=== PATIENT | male | born 1995 | race Caucasian/White ===

== ENCOUNTER 2018-10-12 02:47 | Emergency (ER) | payer SELFPAY ==
[~2018-10-12] VITALS: Ht 175.3 cm; Wt 79.4 kg
--- OUTSIDE RECORDS SUMMARY | 2018-10-12 02:52 | XMS REPORT | Continuity of Care Document ---
Author Organization Unknown Address Unknown Allergies Active Description Code Type Severity Reaction Onset Reported/Identified Relationship to Patient Clinical Status Yes No Known Medication Allergies Drug N/A N/A Medications There is no data. Problems Date Dx Coded Attending Type Code Diagnosis Diagnosed By 08/10/2014 ESTEE MEDLEY APRN 380.4 IMPACTED CERUMEN 12/13/2017 Final R06.02 Shortness of breath 12/13/2017 Final R07.2 Precordial pain 12/13/2017 Final R11.0 Nausea 12/13/2017 Final Z72.0 Tobacco use Procedures Code [place] [address] REMOVE IMPACTED EAR WAX UNI 08/10/2014 [id number] Emergency department visit for the evalu KRISTINE PARRA 12/12/2017 Results Test Result Range CARDIAC MARKER, 0 HR WITH REFLEX - 12/13/17 00:07 Cardiac Troponin T <0.01 ng/mL 0.00-0.02 Myoglobin 29 ng/mL 0-70 Encounters ACCT No. Visit Date/Time Discharge Status Pt. Type Provider Facility Loc./Unit Complaint [id number] 08/10/2014 15:29:00 08/10/2014 23:59:59 [facility] Outpatient ESTEE MEDLEY APRN [id number] 12/12/2017 23:27:00 Document Registration [id number] 07/22/2018 10:00:00 07/22/2018 23:59:59 [facility] Outpatient ZOILA KIRBY [facility]
--- OUTSIDE RECORDS SUMMARY | 2018-10-12 02:52 | XMS REPORT ---
Author Author ZOILA KIRBY [facility] Address [address] [place] [address] Care Team Providers Care Aerographer Name Role Phone ZOILA KIRBY Unavailable PROBLEMS Type Condition ICD9-CM Code WIA22-UC Code Onset Dates Condition Status SNOMED Code Problem Tobacco use Z72.0 Feb, 0 490297294 Problem Gastroesophageal reflux disease 530.81 Apr, 0 445363317 Problem GERD with esophagitis K21.0 Active 638518431 Problem Gastroesophageal reflux disease, esophagitis presence not specified K21.9 Active 838541641 Problem Tobacco use 305.1 Feb, 0 697694280 Problem Cigarette nicotine dependence, uncomplicated 305.1 Feb, 0 729290867 Problem Gastroesophageal reflux disease K21.9 Apr, 0 424966353 Problem Cigarette nicotine dependence, uncomplicated F17.210 Feb, 0 341261645 ALLERGIES Substance Reaction Event Type Date Status Carafate dizziness Drug Allergy Jul, Active ENCOUNTERS Encounter Location Date Diagnosis [address] [address] Jul, GERD with esophagitis K21.0 and Epistaxis, recurrent R04.[address] [address] Jul, [facility] [id number] [address] May, [facility] [id number] [address] Apr, [facility] [id number] [address] Apr, [facility] [id number] [address] Apr, [facility] [address] [facility] [id number] [place] [address] 16 Apr, 2018 IMMUNIZATIONS No Known Immunizations SOCIAL HISTORY Never Assessed REASON FOR VISIT medical history update PLAN OF CARE VITAL SIGNS MEDICATIONS Medication Instructions Dosage Frequency Start Date End Date Duration Status Omeprazole 20 MG Take 1 Capsule (20 mg) by mouth 2 times daily. Unknown RESULTS No Results PROCEDURES No Known procedures INSTRUCTIONS MEDICATIONS ADMINISTERED No Known Medications MEDICAL (GENERAL) HISTORY Type Description Date Medical History tobacco use Medical History cigarette dependence Medical History gastroesophageal reflux disease Medical History bipolar Medical History depression Surgical History EGD
--- NOTE | 2018-10-12 03:33 | ED Psychosocial ---
General Chief Complaint: Psych/Social Disorder Stated Complaint: VOLUNTARY MENTAL HEALTH Source: patient, police Exam Limitations: no limitations History of Present Illness Date Seen by Provider: October 12, 2018 Time Seen by Provider: 03:18 Initial Comments Patient presents to ER by police escort but not in their custody. His chief complaint of increased difficulty at home with his suspecting that he's cheating on her and making accusations. He has been cutting on his forearms walking around town listening to music and other coping mechanisms which have worked in the past but he does not feel they are helping now. He denies suicidal or homicidal ideation. He did have an episode of serious cutting without suicide attempt in 2010 and spent some time inpatient psychiatric hospitalization. After that he followed with psychiatry and took medicines Seroquel and a few others with only poor results. He no longer takes any routine medications. He does not want to do inpatient psychiatry nor does he want any psychiatric medicines. He is interested however in counseling and would be interested in an outpatient referral. He has cut on himself today on his forearms superficially. He does have a history of GERD and takes acid reducers twice a day. He is not having any problems with it presently. Allergies and Home Medications Allergies Coded Allergies: sucralfate (Verified Allergy, Unknown, 10/12/18) Patient Home Medication List Home Medication List Reviewed: Yes Review of Systems Constitutional: No chills, No diaphoresis EENTM: No ear discharge, No ear pain Respiratory: No cough, No short of breath Cardiovascular: No chest pain, No edema Gastrointestinal: No abdominal pain, No constipation, No diarrhea, No nausea Genitourinary: No discharge, No dysuria Musculoskeletal: No back pain, No joint pain Past Twnzfyk-Ldvkwb-Njzdnx Hx Patient Social History Alcohol Use: Denies Use Recreational Drug Use: No Smoking Status: Never a Smoker 2nd Hand Smoke Exposure: No Recent Foreign Travel: No Contact w/Someone Who Travel: No Recent Hopitalizations: No Physical Abuse: No Sexual Abuse: No Mistreated: No Fear: No Seasonal Allergies Seasonal Allergies: No Past Medical History Surgeries: No Respiratory: No Cardiac: No Neurological: No Genitourinary: No Gastrointestinal: Yes Gastroesophageal Reflux Musculoskeletal: No Endocrine: No HEENT: No Cancer: No Psychosocial: Yes Depression Integumentary: No Blood Disorders: No Physical Exam Vital Signs - First Documented 10/12/18 03:24 Temp 98.4 Pulse 58 Resp 15 B/P (MAP) 164/83 (110) Pulse Ox 100 O2 Delivery Room Air Capillary Refill : Height, Weight, BMI Height: '" Weight: lbs. oz. kg; BMI Method: General Appearance: WD/WN, no apparent distress HEENT: PERRL/EOMI, pharynx normal Respiratory: no respiratory distress, no accessory muscle use Cardiovascular: normal peripheral pulses, no edema Extremities: normal inspection, no pedal edema Neurologic/Psychiatric: alert, oriented x 3, other (flat affect, avoids eye contact, normal carissa of speech. Denies hallucinations or delusions. Denies suicidal or homicidal ideation. Endorses low-energy, low mood, depression and cutting her bilateral forearms to relieve stress.) Appearance/Memory: appropriate appearance, appropriate insight Behavior/Eye Contact: cooperative, normal speech, avoids eye contact Thoughts/Hallucinations: no apparent hallucination; No delusions, No grandiose, No paranoid Skin: other (4 cm area of linear crosswise superficial erythematous abrasions consistent with cutting on left forearm palmar side) Progress/Results/Core Measures Results/Orders Vital Signs/I&O 10/12/18 03:24 Temp 98.4 Pulse 58 Resp 15 B/P (MAP) 164/83 (110) Pulse Ox 100 O2 Delivery Room Air Progress Progress Note #1: Time: 03:32 Progress Note The patient is adamant that he is not suicidal or having any homicidal ideation and does not wish to go inpatient. He does not desire to see a psychiatrist or start medicines. He has quite a bit of distressed surrounding medicine that he's tried in the past. He would however like to get set up with counseling outpatient this week if possible. He has concerns about how he is going to pay for it so we offered to put him in contact with the screener and see what resources are available in his area. He is happy to talk to the screener and get set up for counseling on an outpatient basis. He has made no statements that he is suicidal with anyone since he's been here. Since he is adamant against going inpatient and is not suicidal we will dispense with labs and EKG. Progress Note #2: Time: 04:02 Progress Note After speaking to mental health screener's and will be at least 2 hours possibly longer before they get to him. They said he can walk in for an appointment in 4 hours at the clinic. We presented these options to the patient and he says he prefer to go home get some sleep and just go to the clinic at 8:00 in the mor ana. Departure Impression Primary Impression: Depression Qualified Codes: F32.9 - Major depressive disorder, single episode, unspecified Additional Impression: Self-cutting of wrist Disposition: HOME, SELF-CARE Condition: Stable Departure-Patient Inst. Decision time for Depature: 04:03 Referrals: NO,LOCAL PHYSICIAN (PCP) Primary Care Physician Patient Instructions: Depression, Adult (DC), SUICIDE CONTRACT Add. Discharge Instructions: Go home and get some sleep. Plan to present 8:00 in the morning at the clinic and request screening for mental health counseling and other services as available. If you begin to have suicidal or homicidal thoughts please contact the police or return to the nearest ER for support prior to making a decision that you cannot take back. All discharge instructions reviewed with patient and/or family. Voiced understanding. Work/School Note: Work Release Form Date Seen in the Emergency Department: October 12, 2018 Return to Work: October 13, 2018 Restrictions: No Restrictions DARWIN ROGERS October 12, 2018 03:33
--- NOTE | 2018-10-12 03:50 | NUR ---
tracking number [id number]
--- NOTE | 2018-10-12 03:50 | NUR ---
[facility] notified of pt wanting screening, states may be up to 2 hrs before screening or go to [facility] clinic in am. pt informed and agreed to go to clinic in am, pt safety contract signed and pt remains suicidal/homicidal thought free upon discharge.
[2018-10-12 04:18] VITALS: BP 164/83
== END 2018-10-12 03:55 | disposition home or self-care (01) ==
LOC: ER FS 02:49
DX: S60.812A Abrasion of left wrist, initial encounter (principal); F32.9 Major depressive disorder, single episode, unspecified; K21.9 Gastro-esophageal reflux disease without esophagitis; Z88.8 Allergy status to other drugs, medicaments and biological substances; X78.9XXA Intentional self-harm by unspecified sharp object, initial encounter
CPT/HCPCS: 99283

== ENCOUNTER 2020-08-11 16:51 | Emergency (ER) | payer OTHER ==
[2020-08-11] MEDS ORDERED: FAMOTIDINE 20MG/2ML IV (PEPCID) IVP ONE (17:00)
[2020-08-11] MEDS ORDERED: ONDANSETRON 4 MG/2 ML (SDV) Z0FRAN IVP ONE (17:00)
[2020-08-11] MEDS ORDERED: NS IV 1000 ML 1,000 ML IV SCH (17:00)
--- NOTE | 2020-08-11 17:00 | ED Chest Pain ---
General Chief Complaint: Chest Pain Stated Complaint: CHEST PAIN | WEAKNESS IN LEGS Source: patient Exam Limitations: no limitations History of Present Illness Date Seen by Provider: Aug 11, 2020 Time Seen by Provider: 17:00 Initial Comments 24-year-old male with Long-term history of gastritis and GERD presents with onset of chest pain 3 hours prior to arrival. Patient states that he just woke up (which was a normal time for him as he states he has insomnia). No associated shortness of air, fever chills or cough. No recent illness. Patient is a long-term smoker, denies drug or alcohol use. Has had similar symptoms in the past, denies a history of any heart disease. Allergies and Home Medications Allergies Coded Allergies: sucralfate (Verified Allergy, Unknown, 10/12/18) Patient Home Medication List Home Medication List Reviewed: Yes Review of Systems Review of Systems Constitutional: No chills, No fever, No malaise, No weakness EENTM: No Symptoms Reported Respiratory: Denies Cough, Denies Shortness of Air Cardiovascular: Chest Pain; Denies Edema, Denies Lightheadedness, Denies Palpitations Gastrointestinal: Denies Abdominal Pain, Denies Constipated, Denies Diarrhea; Nausea; Denies Vomiting Musculoskeletal: back pain (w episodes of chest pain) Skin: No change in color, No rash Past Iwjuvbv-Plcaid-Cpirxd Hx Past Med/Social Hx: Reviewed Nursing Past Med/Soc Hx Patient Social History Smoking Status: Current Everyday Smoker 2nd Hand Smoke Exposure: No Recent Hopitalizations: No Seasonal Allergies Seasonal Allergies: No Past Medical History Surgeries: No Respiratory: No Cardiac: No Neurological: No Genitourinary: No Gastrointestinal: Yes Gastroesophageal Reflux Musculoskeletal: No Endocrine: No HEENT: No Cancer: No Psychosocial: Yes Depression Integumentary: No Blood Disorders: No Physical Exam Vital Signs Capillary Refill : Height, Weight, BMI Height: 5'9.00" Weight: 175lbs. oz. 79.390631xm; BMI Method:Stated General Appearance: No Apparent Distress, WD/WN HEENT: PERRL/EOMI, Normal ENT Inspection Neck: Non Tender, Supple Respiratory: Chest Non Tender, Lungs Clear, Normal Breath Sounds, No Accessory Muscle Use, No Respiratory Distress Cardiovascular: Regular Rate, Rhythm, No Edema, No JVD Gastrointestinal: Normal Bowel Sounds, No Organomegaly, No Pulsatile Mass, Non Tender, Soft Extremity: Normal Capillary Refill, Non Tender Neurologic/Psychiatric: Alert, Oriented x3, No Motor/Sensory Deficits Progress/Results/Core Measures Results/Orders Lab Results Laboratory Tests Test 08/11/20 17:25 Range/Units White Blood Count 9.1 4.3-11.0 10^3/uL Red Blood Count 4.78 4.35-5.85 10^6/uL Hemoglobin 15.5 13.3-17.7 G/DL Hematocrit 44 40-54 % Mean Corpuscular Volume 91 80-99 FL Mean Corpuscular Hemoglobin 32 25-34 PG Mean Corpuscular Hemoglobin Concent 36 32-36 G/DL Red Cell Distribution Width 11.9 10.0-14.5 % Platelet Count 240 130-400 10^3/uL Mean Platelet Volume 9.6 7.4-10.4 FL Immature Granulocyte % (Auto) 0 % Neutrophils (%) (Auto) 73 42-75 % Lymphocytes (%) (Auto) 20 12-44 % Monocytes (%) (Auto) 4 0-12 % Eosinophils (%) (Auto) 2 0-10 % Basophils (%) (Auto) 0 0-10 % Neutrophils # (Auto) 6.6 1.8-7.8 X 10^3 Lymphocytes # (Auto) 1.8 1.0-4.0 X 10^3 Monocytes # (Auto) 0.4 0.0-1.0 X 10^3 Eosinophils # (Auto) 0.2 0.0-0.3 10^3/uL Basophils # (Auto) 0.0 0.0-0.1 10^3/uL Immature Granulocyte # (Auto) 0.0 0.0-0.1 10^3/uL Sodium Level 141 135-145 MMOL/L Potassium Level 4.6 3.6-5.0 MMOL/L Chloride Level 103 98-107 MMOL/L Carbon Dioxide Level 27 21-32 MMOL/L Anion Gap 11 5-14 MMOL/L Blood Urea Nitrogen 12 7-18 MG/DL Creatinine 1.00 0.60-1.30 MG/DL Estimat Glomerular Filtration Rate > 60 BUN/Creatinine Ratio 12 Glucose Level 98 70-105 MG/DL Calcium Level 10.0 8.5-10.1 MG/DL Corrected Calcium 8.5-10.1 MG/DL Total Bilirubin 0.8 0.1-1.0 MG/DL Aspartate Amino Transf (AST/SGOT) 19 5-34 U/L Alanine Aminotransferase (ALT/SGPT) 24 0-55 U/L Alkaline Phosphatase 90 40-136 U/L Troponin I < 0.30 <0.30 NG/ML Total Protein 7.5 6.4-8.2 GM/DL Albumin 5.0 H 3.2-4.5 GM/DL My Orders Orders - JOSE LUIS SEGURA DO Ekg Tracing (08/11/20 17:00) Cbc With Automated Diff (08/11/20 17:00) Comprehensive Metabolic Panel (08/11/20 17:00) Troponin I Fs (08/11/20 17:00) Chest 1 View Ap/Pa Only (08/11/20 17:00) Ns Iv 1000 Ml (Sodium Chloride 0.9%) (08/11/20 17:00) Famotidine Injection (Pepcid Injection) (08/11/20 17:00) Ondansetron Injection (Zofran Injectio (08/11/20 17:00) Medications Given in ED Current Medications Medications Dose Ordered Sig/Pavan Route Start Time Stop Time Status Last Admin Dose Admin Famotidine 20 mg ONCE ONCE IVP 08/11/20 17:00 08/11/20 17:07 DC 08/11/20 17:45 20 MG Ondansetron HCl 4 mg ONCE ONCE IVP 08/11/20 17:00 08/11/20 17:07 DC 08/11/20 17:45 4 MG Progress Progress Note : Progress Note feeling better after IV pepcid and zofran. Discussed smoking cessation. Patient admits he already stopped drinking ETOH and caffeine because both upset his stomach. Initial ECG Impression Date: Aug 11, 2020 Initial ECG Impression Time: 17:00 Initial ECG Rhythm: Normal Sinus Initial ECG Intervals: Normal Initial ECG Impression: Normal Initial ECG Comparisson: No Previous ECG Available Departure Impression Primary Impression: Chest pain Qualified Codes: R07.9 - Chest pain, unspecified Additional Impression: Chronic GERD Disposition: 01 HOME, SELF-CARE Condition: Improved Departure-Patient Inst. Decision time for Depature: 18:05 Referrals: NO,LOCAL PHYSICIAN (PCP/Family) Primary Care Physician Patient Instructions: Chest Pain (DC), Acid Reflux and GERD in Adults (DC) Add. Discharge Instructions: Follow up with your Primary Care Provider in 1 to 2 weeks regarding your GERD. Return to the ER sooner if worse. All discharge instructions reviewed with patient and/or family. Voiced understanding. Scripts Famotidine (Pepcid) 20 Mg Tablet 20 MG PO HS, #30 TAB Prov: JOSE LUIS SEGURA DO 08/11/20 JOSE LUIS SEGURA DO Aug 11, 2020 17:00
--- NOTE | 2020-08-11 17:28 | Diagnostic Imaging Report ---
EXAMINATION: Chest 1 view. HISTORY: Chest pain. COMPARISON: None available. FINDINGS: Heart size and pulmonary vasculature are normal. The lungs are clear without consolidation, pleural effusion or pneumothorax. The osseous structures are intact. IMPRESSION: No acute radiographic abnormality in the chest. Dictated by: Dictated on workstation # [id number]
[2020-08-11 17:35] LABS: HEMATOCRIT 44 % (40-54); HEMOGLOBIN 15.5 G/DL (13.3-17.7); MEAN CORPUSCULAR HEMOGLOBIN 32 PG (25-34); MEAN CORPUSCULAR HGB CONC 36 G/DL (32-36); MEAN CORPUSCULAR VOLUME 91 FL (80-99); PLATELET COUNT 240 10^3/uL (130-400); WHITE BLOOD COUNT 9.1 10^3/uL (4.3-11.0)
[2020-08-11 17:36] LABS: BASOPHILS % (AUTO) 0 % (0-10); EOSINOPHILS # (AUTO) 0.2 10^3/uL (0.0-0.3); EOSINOPHILS % (AUTO) 2 % (0-10); LYMPHOCYTES # (AUTO) 1.8 X 10^3 (1.0-4.0); LYMPHOCYTES % (AUTO) 20 % (12-44); MEAN PLATELET VOLUME 9.6 FL (7.4-10.4); MONOCYTES # (AUTO) 0.4 X 10^3 (0.0-1.0); MONOCYTES % (AUTO) 4 % (0-12); NEUTROPHILS # (AUTO) 6.6 X 10^3 (1.8-7.8); NEUTROPHILS % (AUTO) 73 % (42-75)
[2020-08-11 17:58] LABS: ALANINE AMINOTRANSFERASE 24 U/L (0-55); ALKALINE PHOSPHATASE 90 U/L (40-136); BILIRUBIN,TOTAL 0.8 MG/DL (0.1-1.0); BUN/CREATININE RATIO 12; CARBON DIOXIDE 27 MMOL/L (21-32); CHLORIDE 103 MMOL/L (98-107); GFR ESTIMATED > 60; GLUCOSE 98 MG/DL (70-105); POTASSIUM 4.6 MMOL/L (3.6-5.0); SODIUM 141 MMOL/L (135-145); TOTAL PROTEIN 7.5 GM/DL (6.4-8.2)
[2020-08-11] MEDS ORDERED: FAMO-119 PO (18:06)
[2020-08-11 18:16] VITALS: BP 140/79
== END 2020-08-11 18:16 | disposition home or self-care (01) ==
LOC: EDUNIT# 16:51 → ER FS 16:53
DX: R07.9 Chest pain, unspecified (principal); K21.9 Gastro-esophageal reflux disease without esophagitis; F17.200 Nicotine dependence, unspecified, uncomplicated; Z88.8 Allergy status to other drugs, medicaments and biological substances
CPT/HCPCS: 36415; 71045; 80053; 84484; 85025; 93005